=== PATIENT | male | born 1970 | race Caucasian/White ===

== ENCOUNTER → 2019-04-20 12:38 | Outpatient (CLI) | payer BC, SELFPAY ==
--- NOTE | 2019-04-20 12:44 | XR_ITS ---
PROCEDURE: XR HAND LT MIN 3V CLINICAL INDICATION: LT HAND PAIN COMPARISON: No exams were available for comparison FINDINGS: There is a boxer's type fracture of the 5th metacarpal. A discrete lucent fracture line is not evident. Correlation with history for previous boxer's fracture is recommended. There is no other finding to suggest acute fracture or dislocation. The joint spaces are well-preserved. No significant degenerative/arthritic changes. No erosive changes evident. Other findings:None. IMPRESSION: Boxer's fracture of 5th metacarpal favored to be chronic. Clinical and historical correlation is recommended. Dictated by: Scar Gamble 04/20/2019 13:07 Electronically signed by Scar Gamble in [place] 04/20/2019 13:07
== END ==
PROVIDERS: PCP Family Medicine; Visit Provider Family Medicine
DX: M79.642 Pain in left hand (principal)
CPT/HCPCS: 73130